=== PATIENT | male | born 1975 | race Caucasian/White ===

== ENCOUNTER 2020-01-20 17:00 | Emergency (ER) | payer OTHER ==
[~2020-01-20] VITALS: Ht 172.7 cm; Wt 90.7 kg
[2020-01-20 17:07] VITALS: BP 142/77
[2020-01-20] MEDS ORDERED: DILAUDID IV STA (17:11)
[2020-01-20] MEDS ORDERED: ZOFRAN IV STA (17:11)
[2020-01-20] MEDS ORDERED: NS 1000ML 1,000 ML IV STA (17:11)
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
[2020-01-20] MEDS ORDERED: ZOFRAN ONE (17:23)
[2020-01-20] MEDS ORDERED: NS 1000ML 1,000 ML ONE (17:23)
[2020-01-20] MEDS ORDERED: DILAUDID ONE (17:23)
--- NOTE | 2020-01-20 17:29 | NUR ---
CAT SCAN PATIENT TO CAT SCAN WITH NIDA FROM RADIOLOGY.
[2020-01-20 17:30] LABS: BASOPHIL % 0.2 % (0.0-0.2); EOSINOPHIL # 0.1 10^3/uL (0.0-0.2); EOSINOPHIL % 1.2 % (0.0-5.0); LYMPHOCYTES % 25.4 % (24.0-44.0); MEAN CORP HGB 28.5 pg (26-34); MONOCYTES # 0.5 10^3/uL (0.3-0.8); MONOCYTES % 4.3 % (5.0-12.0); NEUTROPHIL # 7.8 10^3/uL (1.8-7.7); NEUTROPHILS % 68.4 % (41.0-85.0); PLATELET COUNT 359 10^3/uL (150-400); RED CELL DISTRIBUTION WIDTH 12.6 % (11.5-14.5)
[2020-01-20 17:46] LABS: CALCIUM 8.9 mg/dL (8.4-10.5); CARBON DIOXIDE 22.2 mmol/L (20.0-32)
--- NOTE | 2020-01-20 17:48 | NUR ---
CAT SCAN PATIENT BACK FROM CAT SCAN.
[2020-01-20 17:50] VITALS: BP 115/72
--- NOTE | 2020-01-20 17:53 | PCM.EKG ---
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 Reading MD: Alicia SIERRA Measurements Intervals [place] Rate: 75 P: 69 NM: 155 QRS: 75 QRSD: 100 T: 54 QT: 386 QTc: 432 Interpretive Statements Sinus rhythm No previous ECG available for comparison Electronically Signed On 01-24-2020 14:10:35 CDT by Alicia SIERRA Please click the below link to view image of tracing.
[2020-01-20] MEDS ORDERED: TRIPLE ANTIBIOTIC OINTMENT TP ONE ×2 (18:00→18:48)
[2020-01-20] MEDS ORDERED: LIDOCAINE 1% VIAL ONE (18:00)
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
[2020-01-20 18:23] VITALS: BP 120/83
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
--- NOTE | 2020-01-20 18:55 | NUR ---
HOME PATIENT AND PATIENT VOICED THEY ARE COMFORTABLE GOING HOME WITH PAIN MEDICATION AND WILL FOLLOW UP WITH PRIMARY CARE PHYSICIAN TOMORROW FOR FOLLOW UP EVALUATION.
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
== END 2020-01-20 19:50 | disposition home or self-care (01) ==
LOC: ER 17:00
DX: S22.5XXA Flail chest, initial encounter for closed fracture (principal); E07.9 Disorder of thyroid, unspecified; Z79.899 Other long term (current) drug therapy; V87.8XXA Person injured in other specified noncollision transport accidents involving motor vehicle (traffic), initial encounter; Y93.89 Activity, other specified; Y92.488 Other paved roadways as the place of occurrence of the external cause; Y99.8 Other external cause status
CPT/HCPCS: 12002; 36415; 70450; 71260; 72125; 74177; 80053; 85025; 85610; 85730; 93005; 96361; 96374; 96375; 99291; J1170; J2001; J2405; J7030; Q9965; 99285